=== PATIENT | female | born 1960 | race Caucasian/White ===

== ENCOUNTER 2018-06-03 12:40 | Day surgery (SDC) | payer BC ==
[2018-06-03] MEDS ORDERED: BUPIVACAINE HCL 0.25% MPF 30 ML SOL INFIL ONE (12:57)
[2018-06-03] MEDS: TRIAMCINOLONE ACETONIDE 40 MG/ML SUS ONE ×2 (13:14→13:18)
[2018-06-03 14:00] VITALS: BP 136/80; PULSE 72; RESP 20; TEMP 97.4; O2SAT 94
== END 2018-06-03 13:50 | disposition home or self-care (01) ==
LOC: SURG 12:40
PROVIDERS: ATTEND Nurse Anesthetist, Certified Registered
DX: M53.3 Sacrococcygeal disorders, not elsewhere classified (principal)
CPT/HCPCS: J3300